=== PATIENT | female | born 1965 ===

== ENCOUNTER 2022-05-26 07:00 | Inpatient (IN) | payer OTHER ==
[~2022-05-26] VITALS: Ht 167.6 cm; Wt 77.1 kg
[2022-05-26] MEDS ORDERED: COZAAR50 MG PO (08:37)
[2022-05-26] MEDS ORDERED: DICLOFE PO (08:37)
[2022-05-30] MEDS ORDERED: DICLOFENAC SODI50 MG (13:54)
[2022-06-02] MEDS ORDERED: OXYC1TAB9 PO (07:56)
[2022-06-02] MEDS ORDERED: Septra Ds Tablet PO (07:56)
[2022-06-02] MEDS ORDERED: INTEGRA PLUS C1 EACH PO (07:56)
[2022-06-02] MEDS ORDERED: XARELTO10 MG PO (07:56)
== END 2022-06-02 15:20 | DRG 470 ==
LOC: O/R 05-30 06:10 → SURG 05-30 07:00 → SURH 05-30 20:22
PROVIDERS: ADMIT Orthopaedic Surgery Sports Medicine; ATTEND Orthopaedic Surgery Sports Medicine
PROC: 3E0F7SF Introduction of Other Gas into Respiratory Tract, Via Natural or Artificial Opening (ICD-10-PCS; 2022-05-30)
PROC: 0SR903Z Replacement of Right Hip Joint with Ceramic Synthetic Substitute, Open Approach (ICD-10-PCS; principal; 2022-05-30 12:45)
PROC: 30233N1 Transfusion of Nonautologous Red Blood Cells into Peripheral Vein, Percutaneous Approach (ICD-10-PCS; 2022-06-02)
DX: M16.11 Unilateral primary osteoarthritis, right hip (principal); I95.1 Orthostatic hypotension; D64.89 Other specified anemias

== ENCOUNTER 2022-09-23 07:45 | Inpatient (IN) | payer OTHER ==
[~2022-09-23] VITALS: Ht 167.6 cm; Wt 77.1 kg
[~2022-09-23 07:45] MED LIST: COZAAR50 MG PO; DICLOFE PO; DICLOFENAC SODI50 MG; INTEGRA PLUS C1 EACH PO; OXYC1TAB9 PO; Septra Ds Tablet PO; XARELTO10 MG PO
[2022-09-23] MEDS ORDERED: COZAAR100 MG PO (08:47)
[2022-09-23] MEDS ORDERED: CATAFLAN PO (08:48)
[2022-09-26] MEDS ORDERED: DICLOFENAC POTA50 MG (11:54)
[2022-09-29] MEDS ORDERED: Septra Ds Tablet PO (08:47)
[2022-09-29] MEDS ORDERED: OXYC1TAB9 PO (08:47)
[2022-09-29] MEDS ORDERED: INTEGRA PLUS C1 EACH PO (08:47)
[2022-09-29] MEDS ORDERED: XARELTO10 MG PO (08:47)
== END 2022-09-29 21:40 | disposition short-term general hospital, planned readmission (82) | DRG 470 ==
LOC: SURG 09-26 07:45 → O/R 09-26 07:46 → SURG 09-26 15:15 → SURH 09-26 18:07
PROVIDERS: Internal Medicine; ADMIT Orthopaedic Surgery Sports Medicine; ATTEND Orthopaedic Surgery Sports Medicine
PROC: 0SRB0JZ Replacement of Left Hip Joint with Synthetic Substitute, Open Approach (ICD-10-PCS; principal; 2022-09-26 15:15)
DX: M16.12 Unilateral primary osteoarthritis, left hip (principal)